=== PATIENT | male | born 1965 | race Caucasian/White ===

== ENCOUNTER → 2016-03-21 | Outpatient (CLI) | payer OTHER ==
--- NOTE | 2016-03-21 10:58 | DX ---
Bilateral hips, 2 views each side. Today. HISTORY: Hip pain. Comparison examination: May 03, 2013. FINDINGS: Early degenerative changes are present in both hip joints, with joint space narrowing super iorly and subchondral sclerosis involving the weightbearing aspect of the acetabula. Mild subchondral cystic change involves the lateral right femoral head at the head neck junction. Symphysis pubis and sacroiliac joints appear normal. No fracture. IMPRESSION: 1. Early degenerative joint disease within both hips.
== END ==
LOC: FIMAGING 08:25
PROVIDERS: ATTEND Family Medicine Sports Medicine
DX: M16.0 Bilateral primary osteoarthritis of hip (principal); K46.9 Unspecified abdominal hernia without obstruction or gangrene; M75.40 Impingement syndrome of unspecified shoulder; R10.32 Left lower quadrant pain